=== PATIENT | female | born 1995 | race American Indian/Alaskan Native ===

== ENCOUNTER 2016-11-15 10:32 | Emergency (ER) | payer SELFPAY ==
[2016-11-15 11:17] VITALS: BP 132/94
--- NOTE | 2016-11-15 11:34 | Emergency Department Report ---
ED Female HPI - General Chief complaint: Urogenital-Female Stated complaint: VAGINAL BURNING Time Seen by Provider: 11/15/16 11:28 Source: patient Mode of arrival: Ambulatory Limitations: No Limitations - History of Present Illness Initial comments: Patient here complaining in of urinary burning and for several days. Denies any vaginal pain. Denies any vaginal discharge. Denies any abdominal or pelvic pain. She says she's having lower back pain at 3 out of 10. She said urinary burning is very severe. Last menstrual period 11/15/2016. She says she just started her period today .denies any nausea or vomiting.. MD Complaint: dysuria Onset/Timin -: days(s) Location: other (lower back pain) Radiation: non-radiating Severity: mild Severity scale (0 -10): 3 Quality: aching Consistency: constant Improves with: none Worsens with: urination Are you Now?: No Last Menstrual Period: 11/15/16 EDC: 08/22/17 Associated Symptoms: vaginal bleeding (from menses), dysuria. denies: vaginal discharge, abdominal pain, nausea/vomiting, fever/chills, headaches, loss of appetite, hematuria, shortness of breath, syncope, weakness - Related Data Sexually active: No Previous Rx's Medication Instructions Recorded Last Taken Type Nitrofurantoin Baxter/M-Cryst 100 mg PO Q12HR #14 capsule 11/15/16 Unknown Rx [Macrobid CAP] Phenazopyridine [Pyridium] 200 mg PO TID PRN #9 tab 11/15/16 Unknown Rx Allergies Allergy/AdvReac Type Severity Reaction Status Date / Time No Known Allergies Allergy Unverified 11/15/16 11:13 ED Review of Systems ROS: Stated complaint: VAGINAL BURNING Other details as noted in HPI Comment: All other systems reviewed and negative Constitutional: denies: chills, fever Respiratory: no symptoms reported Cardiovascular: denies: chest pain, palpitations, edema, syncope Gastrointestinal: denies: abdominal pain, nausea, vomiting, diarrhea, constipation Genitourinary: dysuria. denies: urgency, frequency, hematuria, discharge, abnormal menses Musculoskeletal: back pain. denies: arthralgia, myalgia Skin: rash Neurological: denies: headache, weakness, numbness, paresthesias, abnormal gait , vertigo ED Past Medical Hx - Past Medical History Previous Medical History?: No - Surgical History Past Surgical History?: No - Family History Family history: no significant - Social History Smoking Status: Never Smoker Substance Use Type: None - Medications Home Medications: Home Medications Medication Instructions Recorded Confirmed Last Taken Type Nitrofurantoin Baxter/M-Cryst 100 mg PO Q12HR #14 capsule 11/15/16 Unknown Rx [Macrobid CAP] Phenazopyridine [Pyridium] 200 mg PO TID PRN #9 tab 11/15/16 Unknown Rx ED Physical Exam - General Limitations: No Limitations General appearance: alert, in no apparent distress - Head Head exam: Present: atraumatic, normocephalic, normal inspection - Eye Eye exam: Present: normal appearance, PERRL, EOMI Pupils: Present: normal accommodation - ENT ENT exam: Present: normal exam, normal orophraynx - Neck Neck exam: Present: normal inspection, full ROM. Absent: tenderness, meningismus, lymphadenopathy - Respiratory Respiratory exam: Present: normal lung sounds bilaterally. Absent: respiratory distress, wheezes, chest wall tenderness - Cardiovascular Cardiovascular Exam: Present: regular rate, normal rhythm, normal heart sounds - GI/Abdominal GI/Abdominal exam: Present: soft, normal bowel sounds. Absent: distended, tenderness, guarding, rebound, rigid - Extremities Exam Extremities exam: Present: normal inspection, full ROM, normal capillary refill. Absent: tenderness, pedal edema, joint swelling, calf tenderness - Back Exam Back exam: Present: normal inspection, full ROM. Absent: tenderness, CVA tenderness (R), CVA tenderness (L), muscle spasm, paraspinal tenderness, vertebral tenderness, rash noted - Neurological Exam Neurological exam: Present: alert, oriented X3, normal gait, reflexes normal. Absent: motor sensory deficit - Psychiatric Psychiatric exam: Present: normal affect, normal mood - Skin Skin exam: Present: warm, dry, intact, normal color. Absent: rash ED Course Vital Signs 11/15/16 11:13 Temperature 98.7 F Pulse Rate 87 Respiratory 18 Rate Blood Pressure 132/94 O2 Sat by Pulse 100 Oximetry - Reevaluation(s) Reevaluation #1: 11/15/16 12:58 Patient with UTI and given Rocephin 1 g IM in emergency room. ED Medical Decision Making - Lab Data Lab Results 11/15/16 Range/Units 11:45 Urine Color Devi (Yellow) Urine Turbidity Cloudy (Clear) Urine pH 5.0 (5.0-7.0) Ur Specific Varina 1.029 (1.003-1.030) Urine Protein 100 mg/dl (Negative) mg/dL Urine Glucose (UA) Neg (Negative) mg/dL Urine Ketones Tr (Negative) mg/dL Urine Blood Lg (Negative) Urine Nitrite Neg (Negative) Urine Bilirubin Neg (Negative) Urine Urobilinogen 2.0 (<2.0) mg/dL Ur Leukocyte Esterase Mod (Negative) Urine WBC (Auto) > 182.0 H (0.0-6.0) /HPF Urine RBC (Auto) > 182.0 (0.0-6.0) /HPF U Epithel Cells (Auto) 10.0 (0-13.0) /HPF Urine Mucus 3+ /HPF Urine HCG, Qual Negative (Negative) Urine culture pending negative Patient has large amount of blood in her urine because she started her menses today - Medical Decision Making ED course: Patient with acute cystitis and dysuria with lower back pain. Patient was given Toradol 60 mg IM and emergency room for back pain. She was also given Rocephin 1 g IM and emergency room for urinary tract infection. Patient with large amount of blood in the urine because his she started her menses today. Urine culture sent and pending. I educated patient on diagnosis and treatment plan and gave her results of her urinalysis and test. Patient discharged home in stable condition with prescription for Macrobid and Pyridium. Patient to follow up with her primary care physician in 3-5 days and if she does not have one hour for her to [facility]. Critical care attestation.: If time is entered above; I have spent that time in minutes in the direct care of this critically ill patient, excluding procedure time. ED Disposition Clinical Impression: Dysuria Acute cystitis Qualifiers: Hematuria presence: without hematuria Qualified Code(s): N30.00 - Acute cystitis without hematuria Lower back pain Qualifiers: Chronicity: acute Back pain laterality: bilateral Sciatica presence: without sciatica Qualified Code(s): M54.5 - Low back pain Disposition: TO HOME OR SELFCARE Is pt being admited?: No Does the pt Need Aspirin: No Condition: Stable Instructions: Urinary Tract Infection in Children (ED), Dysuria (ED) Additional Instructions: Please increase her fluid intake to 2-3 L of fluid per day Take antibiotic as prescribed Please follow up with a primary care physician and if you do not have one he can follow-up with [facility] for urinary tract infection Take Pyridium and this will relieve urinary burning Prescriptions: Nitrofurantoin Baxter/M-Cryst [Macrobid CAP] 100 mg PO Q12HR #14 capsule Phenazopyridine [Pyridium] 200 mg PO TID PRN #9 tab PRN Reason: URINE BURNING Referrals: PRIMARY CARE, [Primary Care Provider] - 3-[address] [facility] [Outside] - 3-5 Days Forms: Work/School Release Form(ED)
[2016-11-15] MEDS ORDERED: TORADOL IM ONE (11:38)
[2016-11-15 12:34] LABS: Bilirubin,Urine NEG (Negative); Blood,Urine LG (Negative); Ketones,Urine TR mg/dL (Negative); Leukocyte Esterase,Urine MOD (Negative); Mucus,Urine 3+ /HPF; Nitrite,Urine NEG (Negative)
[2016-11-15 12:38] LABS: RBC,Urine > 182.0 /HPF (0.0-6.0); WBC,Urine > 182.0 /HPF (0.0-6.0)
[2016-11-15] MEDS ORDERED: ROCEPHIN IM STA (12:42)
[2016-11-15] MEDS ORDERED: XYLOCAINE 1% MPF 5 mL INFILTRATI ONE (12:42)
== END 2016-11-15 13:35 | disposition home or self-care (01) ==
LOC: ED 10:32
DX: N30.00 Acute cystitis without hematuria (principal)
CPT/HCPCS: 81001; 81025; 87086; 96372; 99283; J0696; J1885